=== PATIENT | female | born 1965 ===

== ENCOUNTER → 2016-06-06 | Outpatient (REF) | payer OTHER | LOC: M LABDRAW1 15:36 | PROVIDERS: ATTEND Physician Assistant Medical | DX: M25.50 Pain in unspecified joint (principal); L30.9 Dermatitis, unspecified ==

== ENCOUNTER → 2020-08-08 | Outpatient (REF) | payer MEDICARE ==
[2020-08-08 14:20] LABS: HEMOGLOBIN A1c 5.7 %
[2020-08-08 14:41] LABS: RHEUMATOID FACTOR QUANT < 10.0 IU/ML (<15.0); TOTAL PROTEIN 6.4 GM/DL (6.4-8.2)
[2020-08-08 14:46] LABS: VITAMIN B12 LEVEL 595 PG/ML
[2020-08-08 14:47] LABS: FOLATE > 24.0 NG/ML
== END ==
LOC: M LAB REF 12:54
PROVIDERS: ATTEND Internal Medicine
DX: R20.2 Paresthesia of skin (principal)

== ENCOUNTER → 2020-11-21 | Outpatient (REF) | payer MEDICARE ==
[2020-11-21 17:41] LABS: FOLLICLE STIMULATING HORMONE 87.9 mIU/mL; LUTEINIZING HORMONE 52.8 mIU/mL
== END ==
LOC: M LAB REF 16:30
PROVIDERS: ATTEND Internal Medicine
DX: N95.1 Menopausal and female climacteric states (principal)

== ENCOUNTER → 2024-10-25 | Outpatient (REF) | payer MEDICARE ==
[2024-10-28 10:21] LABS: RBC FOLATE 650.0 NG/ML (280-791)
== END ==
LOC: M LAB REF 12:43
PROVIDERS: ATTEND Internal Medicine
DX: Z15.89 Genetic susceptibility to other disease (principal)